=== PATIENT | male | born 1960 | race Caucasian/White ===

== ENCOUNTER 2019-01-03 17:20 | Observation (INO) | payer BC ==
[~2019-01-03] VITALS: Ht 167.6 cm; Wt 59.5 kg
--- NOTE | ~2019-01-03 | HEMODYNAMI ---
PATIENT:ERENDIRA CARDENAS MEDICAL RECORD: [id number] : 62 LOCATION:[address] ADMISSION DATE: 01/03/19 Generatedon:01/04/201916:54 Patient name: ERENDIRA CARDENAS Patient #: [id number] SSN: DO B: 1960 Date of study: 01/04/2019 Page: Of Hemodynamic Procedure Report Patient Data Patient Demographics Procedure consent was obtained First Name: ERENDIRA Gender: Male Last Name: THERESA : 1960 Patient #: [id number] Age: 58 year(s) Race: Unknown Additional ID: [id number] Contact details Address: [facility] [employer] State: [place] City: [place] Zip code: [address] Admission Admission Data Admission Date: 01/03/2019 Admission Time: 19:10 Room #: D.2125 Lab Results Lab Result Date: 01/04/2019 Lab Result Time: 0:00 Biochemistry Name Units Result Min Max BUN mg/dl 12 --(-*--)-- 7 18 Creatinine mg/dl 1.3 --(---*)-- 0.6 1.3 CBC Name Units Result Min Max Hemoglobin g/dl 13.1 -*(----)-- 13.5 17.5 Procedure Procedure Types Cath Procedure Diagnostic Procedure [facility] w/Coronaries Sedation Charges Moderate Sedation up to 15 minutes PCI Procedure PTCA PTCA Initial Procedure Description Procedure Date Procedure Date: 01/04/2019 Procedure Start Time: 16:31 Procedure Staff Name Function Jeffrey Winston MD Performing Physician Ryan Ibanez RT Monitor Kayleen Liao RN Nurse Michael Brink RT Scrub Procedure Data Cath Procedure Fluoroscopy Diagnostic fluoroscopy Total fluoroscopy Time: 5 time: 5 min min Diagnostic fluoroscopy Total fluoroscopy dose: 383 dose: 383 mGy mGy Contrast Material Contrast Material Type Amount (ml) Isovue 370 78 Entry Location Entry Primary Successful Side Size Upsize Upsize Entry Closure Succes sful Closure Location (Fr) 1 (Fr) 2 (Fr) Remarks Device Remarks Femoral Right 5 Fr 6 Fr Exoseal artery Short Estimated blood loss: 10 ml Diagnostic catheters Device Type Used For End Catheter Placement MULTIPACK JL 4.0 5Fr Procedure catheter MULTIPACK 3DRC 5Fr Procedure catheter MULTIPACK Pigtail 5 Fr Procedure catheter Procedure Complications No complications Procedure Medications Medication Administration Route Dosage Oxygen etCO2 Nasal cannula 2 l/min Lidocaine 2% added to field 20 Heparin Flush Bag added to field 2 bags (1000units/500ml NS) 0.9% NaCl I.V. 100 ml/hr Versed I.V. 1 mg Fentanyl I.V. 50 mcg Heparin Bolus I.V. 4000 units Integrilin (Bolus I.V. 5 ml 2mg/ml) Versed I.V. 1 mg Fentanyl I.V. 50 mcg Versed I.V. 1 mg Plavix P.O. 600 mg Hemodynamics Rest HGB: 13.1 (g/dl) Heart Rate: 55 (bpm) Pressure Samples Time Site Value (mmHg) Purpose Heart Use Rate(bpm) 16:34 LV 97/11,15 Snapshot 69 Gradients Valve Time Site Site Mean SEP/DFP Peak To Heart Use 1 2 (mmHg) (sec/min) Peak Rate (mmHg) (bpm) Aortic 16:35 LV AO 68 Snapshots Pre Cath Intra NCS Post Cath Vital Signs Time Heart Resp SPO2 etCO2 NIBP (mmHg) Rhythm Pain Sedation Rate (ipm) (%) (mmHg) Status Level (bpm) 16:18:21 55 16 99 0 120/76(88) NSR 0 (11) 10(A) , No pain 16:22:24 62 14 100 35.9 117/76(88) NSR 0 (11) 10(A) , No pain 16:26:30 62 13 100 32.9 105/64(82) NSR 0 (11) 10(A) , No pain 16:30:36 61 12 100 35.1 101/58(76) NSR 0 (11) 9(A) , No pain 16:34:36 69 12 99 35.1 94/65(81) NSR 0 (11) 9(A) , No pain 16:39:22 67 14 99 35.1 115/74(88) NSR 0 (11) 9(A) , No pain 16:43:22 69 14 100 34.4 122/85(98) NSR 0 (11) 9(A) , No pain 16:47:24 58 13 100 31.4 135/81(117) NSR 0 (11) 10(A) , No pain 16:51:32 48 11 100 33.6 145/87(105) NSR 0 (11) 10(A) , No pain Medications Time Medication Route Dose Verified Delivered Reason Notes Effectiveness by by 16:21:38 Oxygen etCO2 2 Jeffrey Beyer used for Nasal l/min St Wu Liao RN procedure cannula 16:21:47 Lidocaine 2% added 20ml Jeffrey Murphy for local to vial [facility] anesthetic field MD DUDLEY 16:21:53 Heparin Flush added 2 Jeffrey Richardory used for Bag to bags [facility] procedure (1000units/500ml field MD DUDLEY NS) 16:23:16 0.9% NaCl I.V. 100 Jeffrey Beyer used for ml/hr [facility] Wu Liao RN procedure 16:28:26 Versed I.V. 1 mg Jeffrey Beyer for sedation [facility] Wu Liao RN, MD 16:28:31 Fentanyl I.V. 50 Jeffrey Beyer for sedation mcg [facility] Wu Liao RN, MD 16:31:20 Versed I.V. 1 mg Jeffrey Beyer for sedation [facility] Wu Liao RN, MD 16:31:48 Fentanyl I.V. 50 Jeffrey Beyer for sedation mcg [facility] Wu Liao RN, MD 16:36:05 Heparin Bolus I.V. 4000 Jeffrey Beyer for verif ied units St Wu Lioa RN anticoagulation with dr MD cotto 16:37:10 Integrilin I.V. 5 ml Jeffrey Beyer for waste d 5 (Bolus 2mg/ml) St Wu Liao RN antiplatelet ml of MD therapy vial. 16:42:01 Versed I.V. 1 mg Jeffrey Beyer for sedation [facility] Wu Liao RN, MD 16:50:40 Plavix P.O. [address] for mg [facility] Wu Liao RN antiplatelet therapy Procedure Log Time Note 15:44:41 Diagnostic Cath Status : Urgent 15:45:23 Kayleen Liao RN sent for patient. Start room use. 15:45:26 Time tracking: Regular hours (M-F 7:00 - 5:00) 15:45:32 Plan of Care:Hemodynamics will remain stable., Cardiac rhythm will remain stable., Comfort level will be maintained., Respiratory function will remain adequate., Patient/ family verbilizes understanding of procedure., Procedure tolerated without complication., Recovers from procedure without complications.. 15:47:08 H&P Date Dictated: 01/03/2019 Within 30 days and on chart.. 15:48:10 Lab Result : BUN 12 mg/dl 15:48:10 Lab Result : Creatinine 1.3 mg/dl 15:48:10 Lab Result : Hemoglobin 13.1 g/dl 16:12:12 Patient received from Med II to [facility] 2 Alert and oriented. Tansferred to table in Supine position. 16:12:17 Warm blankets applied, and karyna hugger turned on for patient comfort. 16:12:18 Correct patient and procedure confirmed by team. 16:12:19 Signed procedure consent form obtained from patient. 16:12:21 ECG and BP/O2 sat monitors applied to patient. 16:17:12 Vital chart was started 16:17:14 Baseline sample Acquired. 16:17:17 Rhythm: sinus rhythm 16:17:19 Full Disclosure recording started 16:17:19 Pre-procedure instructions explained to patient. 16:17:20 Pre-op teaching completed and patient verbalized understanding. 16:17:22 Family in patients room. 16:17:23 Patient NPO since Midnight. 16:17:25 Is the patient allergic to Iodine/contrast media? No. 16:17:26 Was the patient premedicated? No 16:21:38 Oxygen 2 l/min etCO2 Nasal cannula was administered by Kayleen Liao RN; used for procedure; 16:21:47 Lidocaine 2% 20ml vial added to field was administered by Jeffrey Winston MD; for local anesthetic; 16:21:53 Heparin Flush Bag (1000units/500ml NS) 2 bags added to field was administered by Jeffrey Winston MD; used for procedure; 16:22:11 Is patient on blood thinner?No 16:22:14 Patient diabetic? No. 16:22:16 Previous problem with sedation/anesthesia? No ? 16:22:17 Snore? Yes 16:22:22 Sleep apnea? Yes 16:22:22 Deviated septum? No 16:22:23 Opens mouth fully? Yes 16:22:24 Sticks out tongue? Yes 16:22:25 Airway obstruction? No ? 16:22:26 Dentures? No ? 16:22:30 Pre procedure: right dorsailis pedis pulse 2+ Normal; easily identifiable; not easily obliterated 16:22:31 Modified Omari's test Ulnar > 7 seconds. 16:22:35 Patient pain scale 2/10 chest pain. 16:22:43 IV patent on arrival in left antecubital with 0.9% NaCl at O. 16:22:46 Lab results completed and on chart. 16:22:48 Right groin area was prepped with chlora-prep and draped in sterile fashion 16:22:49 Alarms reviewed by R. N. 16:22:49 Sharps counted by scrub and verified by R.N. 16:22:51 Use device set Femoral Dx 16:22:52 ACIST Syringe (41673) opened to sterile field. 16:22:52 Bag Decanter (2002S) opened to sterile field. 16:22:53 Medline Cath Pack ([id number]) opened to sterile field. 16:22:54 ACIST Hand Control (70914) opened to sterile field. 16:22:54 ACIST Manifold (62047) opened to sterile field. 16:22:55 Tegaderm 4 x 4 (1626W) opened to sterile field. 16:22:56 SHEATH 5FR [place] (QOQ745) opened to sterile field. 16:22:58 DIAGNOSTIC WIRE .035 260cm J wire (083117) opened to sterile field. 16:23:02 DIAGNOSTIC Multipack 5Fr catheter set (VA0829) opened to sterile field. 16:23:16 0.9% NaCl 100 ml/hr I.V. was administered by Kayleen Liao RN; used for procedure; 16:27:39 Zero performed for pressure channel P1 16:27:44 Zero performed for pressure channel P1 16:28:08 Physician arrived 16:28:08 --------ALL STOP TIME OUT------ 16:28:09 Final Timeout: patient, procedure, and site verified with staff and physician. All members of the team are in agreement. 16:28:10 Right groin site verified by team. 16:28:13 Maximum allowable Isovue 300 dose 300ml. Physician notified. (300ml for normal creatinines. For patients with creatinine of 1.7 or higher multiply weight(kg) x 5 divided by creatinine.) 16:28:16 Fire Safety Assessment: A--An alcohol-based skin anteseptic being used preoperatively., C--Open oxygen or nitrous oxide is being used., D--An ESU, laser, or fiber-optic light is being used. 16:28:18 Physical assessment completed. ASA score P 2 - A patient with mild systemic disease as per Jeffrey Winston MD. :: Sedation plan: IV Moderate Sedation Medication:Versed, Fentanyl 16:: Versed 1 mg I.V. was administered by Kayleen Liao RN; for sedation; 16:: Fentanyl 50 mcg I.V. was administered by Kayleen Liao RN; for sedation; ::06 Procedure started. 16:: Local anesthetic to right femoral artery with Lidocaine 2% by Jeffrey Winston MD.INITIAL ACCESS ONLY 16:31:17 A 5 Fr sheath was inserted into the Right Femoral artery 16:: Versed 1 mg I.V. was administered by Kayleen Liao RN; for sedation; : A MULTIPACK JL 4.0 5Fr catheter was advanced over the wire and used for Procedure. 16:31:42 LCA angiography performed. 16::48 Fentanyl 50 mcg I.V. was administered by Kayleen Liao RN; for sedation; 16:32:46 Catheter exchanged over wire. 16:32:51 A MULTIPACK 3DRC 5Fr catheter was advanced over the wire and used for Procedure. 16:33:08 SHEATH 6FR [place] (DLT915) opened to sterile field. 16:33:08 WHISPER 300cm guide wire ([id number]) opened to sterile field. 16:33:09 INFLATOR Merit BasixCompak (PI6709) opened to sterile field. 16:33:27 RCA angiography performed. 16:33:37 Catheter exchanged over wire. 16:33:43 A MULTIPACK Pigtail 5 Fr catheter was advanced over the wire and used for Procedure. 16:33:48 LV gram done using CRUZ 16:33:50 Injector settings: Ml/sec: 10, Volume: 20, 16:33:51 LV hemodynamics recorded. 16:35:00 EF : 55 % 16:35:01 Catheter removed. 16:35:06 Sheath upsized to a 6 Fr Short. 16:36:05 Heparin Bolus 4000 units I.V. was administered by Kayleen Liao RN; for anticoagulation; verified with dr cotto 16:36:17 GUIDE 6FR EBU 3.5 catheter ([id number]) opened to sterile field. 16:36:28 6 Fr EBU 3.5 guide catheter was inserted over the wire 16:37:10 Integrilin (Bolus 2mg/ml) 5 ml I.V. was administered by Kayleen Liao RN; for antiplatelet therapy; wasted 5 ml of vial. 16:37:50 WHISPER wire advanced. 16:41:46 Wire advanced across lesion. 16:42:01 Versed 1 mg I.V. was administered by Kayleen Liao RN; for sedation; 16:42:20 Inflate balloon Inflation number: 1 A EMERGE OTW 2.5 x 15 balloon ([id number]) was prepped and advanced across the Ramus, then inflated to 8 CAESAR for 0:30 (min:sec). 16:43:27 Inflation number: 2 The EMERGE OTW 2.5 x 15 balloon ([id number]) was reinflated across the Ramus, to 10 CAESAR for 0:30 (min:sec). 16:44:06 Inflation number: 3 The EMERGE OTW 2.5 x 15 balloon ([id number]) was reinflated across the Ramus, to 10 CAESAR for 0:30 (min:sec). 16:44:33 Balloon removed over the wire. 16:44:34 Wire removed. 16:44:35 Guide catheter removed. 16:44:42 EXOSEAL 6Fr (EX600) opened to sterile field. 16:44:50 Sheath removed intact; hemostasis achieved with Exoseal to the Right Femoral artery. 16:44:51 Procedure ended.(Physican Out) 16:45:47 Fluoroscopy time 05.00 minutes. 16:45:51 Fluoroscopy dose: 383 mGy 16:45:51 Flurop Dose total: 383 16:46:01 Contrast amount:Isovue 370 78ml. 16:46:12 Sharps counted by scrub and verified by R.N. 16:46:14 Insertion/operative site no bleeding no hematoma. 16:46:17 Post-op/insertion site Right Femoral artery dressed using a 4 x 4 and Tegaderm. 16:46:19 Post right femoral artery:stable, soft, clean and dry 16:46:20 Post Procedure Pulses reassessed and unchanged 16:46:22 Post-procedure physical assessment completed. ASA score P 2 - A patient with mild systemic disease as per Jeffrey Winston MD. 16:46:24 Post procedure rhythm: unchanged. 16:46:26 Estimated blood loss: 10 ml 16:46:27 Post procedure instruction explained to patient.Patient verbalizes understanding. 16:46:27 Patient needs reinforcement of post procedure teaching. 16:46:42 Procedure type changed to Cath procedure, Diagnostic procedure, LHC, LHC w/Coronaries, Sedation Charges, Moderate Sedation up to 15 minutes, PCI procedure, PTCA, PTCA Initial 16:49:34 Procedure and supply charges have been captured, reviewed, submitted and are correct. 16:49:56 Procedure Complication : No complications 16:50:09 FEMSTOP Gold (O33761) opened to sterile field. 16:50:15 Femstop placed over the right femoral artery at 155 mmHg. Hemostasis achieved. 16:50:40 Plavix 600 mg P.O. was administered by Kayleen Liao RN; for antiplatelet therapy; 16:54:47 Vital chart was stopped Intervention Summary Intervention Notes Time ActionType Lesion and Equipment Action# Pressure Duration Attributes Used 16:42:20 Inflate Ramus EMERGE OTW 1 8 00:30 balloon 2.5 x 15 balloon ([id number]) 16:43:27 Reinflate Ramus EMERGE OTW 2 10 00:30 balloon 2.5 x 15 balloon ([id number]) 16:44:06 Reinflate Ramus EMERGE OTW 3 10 00:30 balloon 2.5 x 15 balloon ([id number]) Device Usage Item Name Manufacture Quantity Catalog Number Hospital Part Current Min imal Lot# / Charge Number Stock Stock Serial# Code ACIST Acist 1 23207 378574 569099 371651 20 Syringe Medical (29562) Systems Inc Bag Decanter Microtek 1 523131 09725 205213 5 () Medical Inc. Medline Cath Medline 1 [id number] 820737 55731 171646 5 Pack ([id number]) ACIST Hand Acist 1 59015 085606 306714 724132 5 Control Medical (35489) Systems Inc ACIST Acist 1 39901 883372 553836 995545 5 Manifold Medical (83890) Systems Inc Tegaderm 4 x 3M 1 1626W 805795 471627 795678 5 4 (1626W) SHEATH 5FR Terumo 1 PLT299 724871 080352 940079 5 [place] (DKT336) DIAGNOSTIC St Lemuel 1 043960 819758 338438 360300 30 WIRE .035 260cm J wire (530125) DIAGNOSTIC Cardinal 1 ID4160 688096 63666 066485 30 Multipack Health 5Fr catheter set (IE6641) MULTIPACK JL Cardinal 1 186765 5 4.0 5Fr Health catheter MULTIPACK Cardinal 1 131857 5 3DRC 5Fr Health catheter SHEATH 6FR Terumo 1 VEJ569 992726 196466 599116 40 [place] (KDN912) WHISPER Flowers 1 [id number] 050661 512984 858645 5 300cm guide Vascular wire (6833309IP) INFLATOR Merit 1 IK0503 343869 557894 069470 15 [employer] Medical BasixCompak (QN3473) MULTIPACK Cardinal 1 111134 5 Pigtail 5 Fr Health catheter GUIDE 6FR Medtronic 1 [id number] 039981 26533 768599 3 EBU 3.5 catheter ([id number]) EMERGE OTW [place] 1 [id number] 760965 808767 929134 5 [id number] 2.5 x 15 Scientific balloon ([id number]) EXOSEAL 6Fr Cardinal 1 EX600 022872 670029 510552 10 (EX600) Health FEMSTOP Gold St Lemuel 1 Q48369 572625 618395 582460 5 (R80203) Signature Audit [place] Stage Time Signature Unsigned Intra-Procedure 01/04/2019 Michael Brink 4:54:43 PM RT(R) Signatures Monitor : Ryan Ibanez RT Signature : Date : Time : [facility] [address] [place] [address]
[~2019-01-03 17:20] MED LIST: BAYER CHEWABLE81 MG PO; CRESTOR10 MG PO; EFFIENT10 MG PO; PLAVIX75 MG PO; TOPROL XL25 MG PO; VOLTAREN100 GM TP
[2019-01-03 17:37] LABS: BASOPHILS 0.7 % (0-2); EOSINOPHILS 1.7 % (0-7); HEMOGLOBIN 15.3 g/dL (13.5-17.5); IMMATURE GRANULOCYTES 0.2 % (0-5); LYMPHOCYTES 18.3 % (15-50); MCH 29.9 pg (26.0-34.0); MCHC 34.8 g/dL (31.0-37.0); MCV 86.1 fL (80.0-100.0); MEAN PLATELET VOLUME 10.7 fL (7.4-10.4); MONOCYTES 7.7 % (2-11); NEUTROPHILS 71.4 % (40-80); RBC 5.11 10x6/uL (4.20-6.10); RDW 13.3 % (11.5-14.5); WBC 9.7 10x3/uL (4.8-10.8)
[2019-01-03 17:39] LABS: PLATELET COUNT 266 10x3/uL (130-400)
[2019-01-03 17:47] LABS: APTT 32.9 SECONDS (22.8-39.4); INR 1.08 (0.85-1.17); PROTIME 13.5 SECONDS (11.6-15.0)
--- NOTE | 2019-01-03 17:49 | NUR ---
CORRECTION, PER EMS PT SELF-ADMINISTERED 325 ASA MOP MAN. PT STATES THAT WAS INCORRECT, HE HAD NOT HAD ASA MOP MAN. 325MG ASA ADMINISTERED IN THE ED. PT STATES PAIN WAS 10/10 PRIOR TO MEDICATIONS, REPORTS PAIN DECREASED TO 8/10 FOLLOWING FIRST SL NITRO, FURTHER DECREASE TO 6/10 FOLLOWING SECOND PRN NITRO, THEN ORDERED IVP MORPHINE ADMINISTERED.
--- NOTE | 2019-01-03 17:51 | NUR ---
PT LEAVING ED VIA STRETCHER AT THIS TIME FOR ORDERED CT SCAN.
[2019-01-03 17:58] LABS: ALBUMIN 3.8 g/dL (3.4-5.0); ALKALINE PHOSPHATASE 139 U/L (46-116); ALT (SGPT) 38 U/L (10-68); BILIRUBIN - TOTAL 0.31 mg/dL (0.2-1.3); CALC OSMOLALITY 280 mosm/kg (275-300); CALCIUM 9.1 mg/dL (8.5-10.1); CARBON DIOXIDE 23.2 mmol/L (21.0-32.0); CHLORIDE - SERUM 103 mmol/L (98-107); CREATININE - SERUM 1.3 mg/dL (0.6-1.3); GLUCOSE 149 mg/dL (74-106); POTASSIUM - SERUM 3.5 mmol/L (3.5-5.1); SODIUM 139 mmol/L (136-145); UREA NITROGEN 12 mg/dL (7-18); eGFR NON AFRICAN AMERICAN 60 mL/min (90-120)
--- NOTE | 2019-01-03 18:07 | NUR ---
PT RETURNED TO ED AT THIS TIME VIA STRETCHER.
[2019-01-03 18:10] LABS: CKMB 9.7 U/L (0.0-3.6); CREATINE KINASE 590 UL (21-232); MAGNESIUM - SERUM 1.9 mg/dL (1.8-2.4); TROPONIN-I < 0.017 ng/mL (0.000-0.060)
--- NOTE | 2019-01-03 19:07 | NUR ---
HAND-OFF REPORT GIVEN TO JUAN Ricks RN USING SBAR COMMUNICATION
[2019-01-03 19:08] VITALS: BP 121/78
--- NOTE | 2019-01-03 20:33 | NUR ---
NEW PATIENT ADMIT FROM ER WITH CHEST PAIN. PATIENT TO ROOM VIA WC AND ER PERSONNEL. PATIENT IS STABLE AND VSS. RT FOREARM WITH IV ACCESS SL. TELEMETRY PLACE. SR AT 68. PATIENT ORIENTED TO ROOM AND CALL LIGHT. PATIENT DENIES ANY NEEDS OR PAIN.GIVEN LEMON SODA PER REQUEST AND PATIENT RESTING COMFORTABLY. WILL CONTINUE WITH PLAN OF CARE. SR UP X 2 BED IN LOW POSITION AND CALL LIGHT IN REACH.
[2019-01-03] MEDS ORDERED: TYLENOL W/CODEI1 TAB PO (20:35)
[2019-01-03] MEDS ORDERED: CLEOCIN HCL150 MG PO (20:36)
[2019-01-03 20:46] VITALS: BP 102/70; BMI 22.6
--- NOTE | 2019-01-04 00:03 | NUR ---
[facility] REPORTED 13 PVC'S IN A ROW AT 1151. PT DENIES FEELING ANYTHING OR FEELING BAD. STATES " I FEEL FINE".
[2019-01-04 00:04] VITALS: BP 90/55
[2019-01-04 05:43] LABS: BASOPHILS 0.3 % (0-2); EOSINOPHILS 1.6 % (0-7); HEMOGLOBIN 13.1 g/dL (13.5-17.5); IMMATURE GRANULOCYTES 0.2 % (0-5); LYMPHOCYTES 24.2 % (15-50); MCH 29.8 pg (26.0-34.0); MCHC 34.5 g/dL (31.0-37.0); MCV 86.6 fL (80.0-100.0); MEAN PLATELET VOLUME 11.2 fL (7.4-10.4); MONOCYTES 6.9 % (2-11); NEUTROPHILS 66.8 % (40-80); RBC 4.39 10x6/uL (4.20-6.10); RDW 13.7 % (11.5-14.5)
[2019-01-04 05:55] VITALS: BP 95/69
[2019-01-04 06:42] LABS: PLATELET COUNT 188 10x3/uL (130-400); WBC 6.2 10x3/uL (4.8-10.8)
[2019-01-04 06:51] LABS: CALCIUM 8.6 mg/dL (8.5-10.1); CARBON DIOXIDE 22.1 mmol/L (21.0-32.0); CHLORIDE - SERUM 106 mmol/L (98-107); CKMB 175.6 U/L (0.0-3.6); SODIUM 140 mmol/L (136-145); UREA NITROGEN 11 mg/dL (7-18); eGFR NON AFRICAN AMERICAN 82 mL/min (90-120)
[2019-01-04 07:07] LABS: CALC OSMOLALITY 277 mosm/kg (275-300); CREATINE KINASE 1282 UL (21-232); GLUCOSE 98 mg/dL (74-106); POTASSIUM - SERUM 4.4 mmol/L (3.5-5.1)
[2019-01-04 07:34] LABS: TROPONIN-I 55.991 ng/mL (0.000-0.060)
--- NOTE | 2019-01-04 07:40 | NUR ---
ASSESSMENT COMPLETED. AWAKE AND ALERT. SL TO LEFT AC. TELEMERTY SHOWS SB. UP AB MARCIA. DENIES ANY PAIN. WILL MONITOR
[2019-01-04 07:55] VITALS: BP 110/68
--- NOTE | 2019-01-04 10:20 | NUR ---
I have reviewed this patient and I concur with the Shift Assessment completed by the Licensed Practical Nurse today this shift.
--- NOTE | 2019-01-04 11:46 | NUR ---
LYING QUIETLY WITH RESP REG AND NON LABORED. DENIES AND PAIN
[2019-01-04 11:53] VITALS: BP 114/73
[2019-01-04 12:44] VITALS: Ht 167.6 cm; Wt 59.5 kg
--- NOTE | 2019-01-04 15:38 | NUR ---
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
[2019-01-04 15:41] VITALS: BP 117/77
--- NOTE | 2019-01-04 16:30 | NUR ---
BACK FROM TREATING PLANT PUMPER. V/S STABLE . TR BAND TO RIGHT GROIN. ALL PRESSURE OFF. PPP. TELEMERTY SHOWED SB.
--- NOTE | 2019-01-04 18:27 | NUR ---
LYING QUIETLY WITH EYES CLOSED. V/S STABLE. RIGHT GROIN SOFT WITH NO BLEEDING. WILL MONITOR
--- NOTE | 2019-01-04 19:30 | NUR ---
ASSESSMENT COMPLETE, PT A&O. RESPERATIONS EVEN ON RA. IV TO LEFT ARM SL, SITE CLEAN AND DRY. FEMSTOP NOTED TO RIGHT GROIN FROM CARDIAC CATH THAT WAS DONE EARLIER TODAY. NO SIGNS OF SWELLING, BLEEDING OR HEMATOMA NOTED. PEDAL PULSES PRESENT. CLEMENTINE MEDRANO GIVEN AT PT REQUEST. INFORMED PT THAT HE CAN GO HOME TONIGHT AROUND 9 PM. PT ASKED IF HE COULD GO HOME IN THE MORNING BECAUSE HE FEELS WEAK AND REALLY TIRED AFTER BEING SEDATED EARLIER. CALL OUT TO DR VALENTINE.
--- NOTE | 2019-01-04 19:38 | NUR ---
SPOKE WITH DR VALENTINE, EXPLAINED THAT PT STATED THAT HE IS FEELING A LITTLE WEAK, ORDERS GIVEN TO DC IN THE AM INSTEAD OF TONIGHT.
[2019-01-04 20:00] VITALS: BP 123/74
--- NOTE | 2019-01-04 21:54 | NUR ---
UP TO BR, GAIT STEADY. DENIES NEEDS.
[2019-01-05] VITALS: BP 113/69
--- NOTE | 2019-01-05 02:42 | NUR ---
RESTING WITH EYES CLOSED, RESPERATIONS EVEN, NO S/S DISTRESS NOTED.
[2019-01-05 04:00] VITALS: BP 118/70
[2019-01-05 08:15] VITALS: BP 109/71
[2019-01-05] MEDS ORDERED: PLAVIX75 MG PO (10:11)
--- NOTE | 2019-01-05 13:05 | NUR ---
PATIENT IS STABLE AND VSS. ORDER RECIEVED FOR DC. IV DC WITHOUT DIFFICULTY. DC INSTRUCTIONS GIVEN VERBALLY AND WRITTEN TO PATIENT AND . PATIENT VERBALIZED UNDERSTANDING AND SIGNED PAPERWORK. PATIENT DC TO PRIVATE VEHICLE DRIVEN BY DAUGHTER.
--- NOTE | 2019-01-05 13:17 | HP ---
PATIENT: ERENDIRA CARDENAS MEDICAL RECORD: [id number] ACCOUNT: [id number] LOCATION:[address] : 62 ADMISSION DATE: 01/03/19 PCP: No PCP HISTORY AND PHYSICAL EXAMINATION HISTORY: A 58-year-old gentleman with history of coronary artery disease, status post stenting approximately 4 years ago, had been doing fairly well. He had onset of chest pressure and tightness yesterday, radiating to the back. ECG has nonspecific ST-T changes. Enzymes consistent with non-ST elevation myocardial infarction. Admitted for further evaluation. PAST MEDICAL HISTORY: Includes; 1. History of hypertension. 2. Hyperlipidemia. 3. Coronary artery disease as described above. ALLERGIES: None known. MEDICATIONS: Typically include aspirin 81 daily. SOCIAL HISTORY: Smokes about a pack a day. Recreational marijuana use. Easily takes care of all his ADLs. 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 REVIEW OF SYSTEMS: The patient reports easy bruising but reports no swollen glands. The patient reports no fever, no night sweats, no significant weight gain, no significant weight loss. No significant exercise tolerance. The patient reports no dry eyes, no irritation, no vision change. Patient reports no difficulty hearing and no ear pain. Patient reports no frequent nose bleeds or nose and sinus problems. Patient reports on arm pain on exertion. No shortness of breath while lying down. No history of heart murmur. Patient reports no cough, no wheezing or coughing up blood. Patient reports no abdominal pain, no vomiting. Normal appetite. No diarrhea and not vomiting blood. No nausea and no constipation. Patient reports no incontinence. No difficulty urinating. No hematuria. No increased frequency. Patient reports no muscle aches. No weakness, no arthralgias, no back pain. No swelling of the extremities. Patient reports no abnormal mole, no jaundice, no rashes. Reports no loss of consciousness. No weakness and no numbness. No seizures, dizziness, or headaches. The patient reports no depression, no sleep disturbance, feeling safe in a relationship and no alcohol abuse. Patient reports on fatigue. Reports no runny nose or sinus pressure. No itching, no hives, and no frequent sneezing. PHYSICAL EXAMINATION: GENERAL: Pleasant gentleman, in no acute distress, appears stated age. VITAL SIGNS: Blood pressure 110/68. Pulse 71. HEENT: Normocephalic and atraumatic. NECK: No JVD or bruit. HEART: Regular. LUNGS: Lung kelley are clear. ABDOMEN: Soft and nontender. EXTREMITIES: Pulses 2+. No edema. DIAGNOSTIC DATA: ECG shows nonspecific ST-T changes inferolaterally. IMPRESSION: NSTEMI, known history of coronary artery disease. HISTORY AND PHYSICAL [id number] ERENDIRA CARDENAS PLAN: Plan on angiography and intervention based on above. TRANSINT:[id number] Voice Confirmation ID: [id number] DOCUMENT ID: [id number] NIDIA GARY MD at 1317 CC: [id number] DICTATION DATE: 01/04/19 0846 PARAPLANNER: 01/04/19 0937 DIS IN 01/05/19 [address] [place] [address]
--- NOTE | 2019-01-05 13:17 | OP ---
PATIENT NAME: ERENDIRA CARDENAS MEDICAL RECORD: [id number] :62 LOCATION:D.M2 D.2125 ADMISSION DATE:01/03/19 SURGEON: NIDIA GARY MD DATE OF OPERATION: 01/04/2019 PROCEDURE: Left heart catheterization, selective coronary angiography plus PTCA to ramus intermediate branch, right femoral artery approach. CATHETERS: A 5-Bhutanese sheath, 5/4 left and right Darius, 5/4 pig. The procedure was well tolerated. The patient was returned to the alcala. Sheath was removed. ExoSeal device was placed. FINDINGS: Left ventriculography in 30-degree CRUZ view; normal wall motion and normal systolic function. CORONARY ANATOMY: LEFT MAIN: Left main is free of disease. LAD: An area of previous stenting is widely patent without evidence of restenosis. No progression of [place]annock disease. There is a small ramus branch obviously infarct related artery with a diffuse 90% stenosis in its mid portion. CIRCUMFLEX: Small vessel, free of disease. RIGHT CORONARY ARTERY: Has about a 50% mid stenosis. Flow restrictive. PLAN: Intervention in the ramus momentarily. DESCRIPTION OF PROCEDURE: A 5-Bhutanese sheath was exchanged for a 6-Bhutanese sheath. An EBU 3.5 guiding catheter provided good guide catheter support followed by a 300 cm Whisper wire. We then placed a 2.5 x 15 mm Kosciusko balloon up and down the vessel. This showed varies soft plaque. Final injection shows excellent resolution of a 90% plus diffuse stenosis to no residual with stent. At that point in time, sheath closed with ExoSeal device. Plavix was loaded in the lab. TRANSINT:[id number] Voice Confirmation ID: [id number] DOCUMENT ID: [id number] NIDIA GARY MD at 1317 CC: [id number] DICTATION DATE: 01/04/19 1653 ENTRY MANAGER: 01/04/192002 DIS IN 01/05/19 [facility] [address] [place] [address]
--- NOTE | 2019-01-05 17:28 | MORECARE ---
CASE MANAGEMENT DISCHARGE SUMMARY PATIENT: ERENDIRA CARDENAS UNIT: [id number] ADM DATE: 01/03/19 AGE: 58 : 62 SEX: M ROOM/BED: D.8535 AUTHOR: XANDER CUELLAR PHYSICIAN: REFERRING PHYSICIAN: NIDIA GARY MD DATE OF SERVICE: 01/05/19 Discharge Plan Patient Name: ERENDIR[facility]DENAS [facility] 1960 Planned Disposition: Home Anticipated Discharge Date: 01/05/19 Discharge Date: 01/05/2019 Expected LOS: 2 Initial Reviewer: [id number] Initial Review Date: 01/05/2019 Generated: 01/05/19 6:28 pm Patient Name: ERENDIRA CARDENAS Page [id number] at 1728 All edits/amendments must be made on the electronic document DICTATION DATE: 01/05/191726 POLEYARD SUPERVISOR: JERSON 01/05/191726 RPT#: [id number] DC DATE:01/05/19 STATUS: DIS IN [facility] [address] [place] [address] END OF REPORT
--- NOTE | 2019-01-06 13:47 | DS ---
PATIENT:ERENDIRA CARDENAS :62 MEDICAL RECORD: [id number] DISCHARGE SUMMARY ADMISSION DATE: 01/03/19 DISCHARGE DATE: 01/05/19 DATE OF ADMISSION: 01/04/2019 DATE OF DISCHARGE: 01/05/2019 PROBLEM LIST: 1. Coronary artery disease. 2. Non-ST elevation myocardial infarction this date to date of admission. 3. Dyslipidemia. 4. Hypertension. BRIEF HISTORY AND HOSPITAL COURSE: A 58-year-old gentleman with known history of coronary artery disease, admitted with NSTEMI, was found to have a patent stent. Both progressive disease of a ramus, coronary intervention of this vessel without complications, discharged to home in good condition. NEW MEDICATION: Includes Plavix 75 every day. DIET: AHA diet. ACTIVITY: As tolerated. The patient was counseled regarding smoking cessation. TRANSINT:[id number] Voice Confirmation ID: [id number] DOCUMENT ID: [id number] NIDIA GARY MD at 1347 CC: [id number] DICTATION DATE: 01/05/19 1309 DIRECTOR OF CLINICAL EDUCATION: 01/06/19 0312 DIS IN 01/05/19 [id number] [place] [address]
== END 2019-01-05 13:14 | disposition home or self-care (01) ==
LOC: D.ER 17:20 → D.M2 19:10 → OBSVTIME 19:10 → D.SDCHOLD 01-05 10:51 → D.M2 01-05 10:54
PROVIDERS: Family Medicine; ADMIT Internal Medicine Interventional Cardiology; ATTEND Internal Medicine Interventional Cardiology
DX: I21.4 Non-ST elevation (NSTEMI) myocardial infarction (principal); I25.10 Atherosclerotic heart disease of native coronary artery without angina pectoris; I10 Essential (primary) hypertension

== ENCOUNTER 2019-06-15 05:30 | Day surgery (SDC) | payer BC ==
[2019-06-10 14:12] LABS: EOSINOPHILS 7.9 % (0-7); HEMATOCRIT 45.7 % (42.0-54.0); HEMOGLOBIN 16.1 g/dL (13.5-17.5); IMMATURE GRANULOCYTES 0.2 % (0-5); LYMPHOCYTES 26.4 % (15-50); MCH 31.6 pg (26.0-34.0); MCHC 35.2 g/dL (31.0-37.0); MCV 89.6 fL (80.0-100.0); MEAN PLATELET VOLUME 10.3 fL (7.4-10.4); MONOCYTES 8.7 % (2-11); NEUTROPHILS 55.8 % (40-80); PLATELET COUNT 206 10x3/uL (130-400); RDW 13.6 % (11.5-14.5); WBC 5.7 10x3/uL (4.8-10.8)
[2019-06-10 14:23] LABS: CALCIUM 8.8 mg/dL (8.5-10.1); CARBON DIOXIDE 29.9 mmol/L (21.0-32.0); CREATININE - SERUM 1.1 mg/dL (0.6-1.3); POTASSIUM - SERUM 3.9 mmol/L (3.5-5.1)
[~2019-06-15] VITALS: Ht 167.6 cm; Wt 74.4 kg
[~2019-06-15 05:30] MED LIST changes: +CLEOCIN HCL150 MG PO; +TYLENOL W/CODEI1 TAB PO
[2019-06-15 06:30] VITALS: BP 117/75; Ht 167.6 cm; Wt 74.4 kg
== END 2019-06-15 10:55 | disposition home or self-care (01) ==
LOC: D.OPS 05:30 → D.PAN 10:45 → D.OPS 10:55
PROVIDERS: ATTEND Orthopaedic Surgery
DX: G56.21 Lesion of ulnar nerve, right upper limb (principal)